=== PATIENT | female | born 2000 | race Two or more races ===

== ENCOUNTER 2022-02-18 18:58 | Emergency (ER) | payer SELFPAY ==
[2022-02-18 19:07] VITALS: BP 133/63; PULSE 92; RESP 18; TEMP 99.6; BMI 27.4
[2022-02-18] MEDS ORDERED: ACETAMINOPHEN 500 MG TABLET (FP) PO ONE (20:13)
[2022-02-18] MEDS ORDERED: ONDANSETRON 4 MG/2 ML VIAL IVPUSH ONE (20:13)
[2022-02-18] MEDS ORDERED: SODIUM CHLORIDE 0.9% 500 ML INFUS.BAG IV ONE (20:13)
[2022-02-18] MEDS ORDERED: ACETAMINOPHEN 1000 MG/100 ML BAG IVPB ONE (20:38)
[2022-02-18] MEDS ORDERED: ONDANSETRON 4 MG/2 ML VIAL ONE (20:44)
[2022-02-18] MEDS ORDERED: ACETAMINOPHEN INJECTION 100 ML IVPB ONE (20:44)
[2022-02-18 21:23] LABS: BASO % 0.4 % (0-2.0); EOS % 0.6 % (0-4.5); HEMATOCRIT 38.6 % (32.4-45.2); HEMOGLOBIN 12.6 GM/dL (10.7-15.3); LYMPH % 18.8 % (8-40); MCH 25.9 pg (25.7-33.7); MCHC 32.6 g/dl (32.0-36.0); MEAN CELL VOLUME 79.4 fl (80-96); MEAN PLT VOLUME 8.1 fl (7.5-11.1); MONO % 17.6 % (3.8-10.2); NEUT % 62.6 % (42.8-82.8); PLATELET COUNT 345 10^3/uL (134-434); RBC 4.86 M/mm3 (3.60-5.2); RDW 15.4 % (11.6-15.6)
[2022-02-18 21:26] LABS: EPI CELLS 22 /uL (0-25.1); HYALINE CASTS 0 /uL (0-3.1); URINE APPEARANCE CLEAR; URINE BACTERIA 7799 /uL (0-1359); URINE BILIRUBIN NEGATIVE (NEGATIVE); URINE COLOR YELLOW; URINE GLUCOSE (UA) NEGATIVE (NEGATIVE); URINE KETONE NEGATIVE (NEGATIVE); URINE LEUK ESTERASE TRACE (NEGATIVE); URINE NITRITE NEGATIVE (NEGATIVE); URINE PROTEIN TRACE (NEGATIVE); URINE RBC 50 /uL (0-23.9); URINE WBC 47 /uL (0-25.8)
[2022-02-18 21:41] LABS: CALCIUM 9.1 mg/dL (8.5-10.1)
[2022-02-18 21:42] LABS: ALBUMIN 3.6 g/dl (3.4-5.0)
[2022-02-18 21:45] LABS: CREATININE 1.1 mg/dL (0.55-1.3)
[2022-02-18 21:47] LABS: BILIRUBIN,TOTAL 0.4 mg/dL (0.2-1)
[2022-02-18] MEDS ORDERED: CEFTRIAXONE 1,000 MG in DEXTROSE 5%-WATER - 50 ML IVPB ONE (22:30)
[2022-02-18] MEDS ORDERED: CEFTRIAXONE 1 GM/50 ML BAG ONE (22:45)
== END 2022-02-19 01:55 | disposition home or self-care (01) ==
LOC: JER 18:58
PROC: 3E033GC Introduction of Other Therapeutic Substance into Peripheral Vein, Percutaneous Approach (ICD-10-PCS; principal; 2022-02-18)
DX: N12 Tubulo-interstitial nephritis, not specified as acute or chronic (principal)
CPT/HCPCS: 0241U-QW; 36415; 74176-TC; 80053; 81003; 84703; 85025; 87086; 87186; 99285-25

== ENCOUNTER 2022-05-11 20:50 | Emergency (ER) | payer OTHER ==
[2022-05-11 21:13] VITALS: BP 133/88; PULSE 85; RESP 18; TEMP 98.1; BMI 29.8
[2022-05-11] MEDS ORDERED: METOCLOPRAMIDE HCL INJECTION 10 MG/2 ML VIAL IVPUSH ONE (21:31)
[2022-05-11] MEDS ORDERED: LACTATED RINGERS SOLUTION 1000 ML INFUS.BAG IV ONE (21:32)
[2022-05-11] MEDS ORDERED: METOCLOPRAMIDE HCL INJECTION 10 MG/2 ML VIAL ONE (21:55)
[2022-05-11 22:09] LABS: BASO % 0.5 % (0-2.0); HEMATOCRIT 40.9 % (32.4-45.2); HEMOGLOBIN 13.3 GM/dL (10.7-15.3); LYMPH % 25.8 % (8-40); MCH 25.8 pg (25.7-33.7); MCHC 32.5 g/dl (32.0-36.0); MEAN CELL VOLUME 79.4 fl (80-96); MEAN PLT VOLUME 7.9 fl (7.5-11.1); MONO % 12.8 % (3.8-10.2); NEUT % 59.9 % (42.8-82.8); PLATELET COUNT 354 10^3/uL (134-434); RBC 5.16 M/mm3 (3.60-5.2); RDW 15.8 % (11.6-15.6); WHITE BLOOD COUNT 12.2 K/mm3 (4.0-10.0)
[2022-05-11 22:17] LABS: URINE APPEARANCE CLOUDY; URINE BILIRUBIN NEGATIVE (NEGATIVE); URINE COLOR YELLOW; URINE GLUCOSE (UA) NEGATIVE (NEGATIVE); URINE KETONE 2+ (NEGATIVE); URINE LEUK ESTERASE NEGATIVE (NEGATIVE); URINE NITRITE NEGATIVE (NEGATIVE); URINE PROTEIN TRACE (NEGATIVE)
[2022-05-11 22:20] LABS: CALCIUM 9.3 mg/dL (8.5-10.1)
[2022-05-11 22:21] LABS: ALBUMIN 3.8 g/dl (3.4-5.0); BLOOD UREA NITROGEN 5.3 mg/dL (7-18)
[2022-05-11 22:24] LABS: CREATININE 0.8 mg/dL (0.55-1.3)
[2022-05-11 22:26] LABS: BILIRUBIN,TOTAL 0.5 mg/dL (0.2-1); TOT PROT 7.6 g/dl (6.4-8.2)
== END 2022-05-12 00:24 | disposition home or self-care (01) ==
LOC: JER 20:50
PROC: 3E033GC Introduction of Other Therapeutic Substance into Peripheral Vein, Percutaneous Approach (ICD-10-PCS; principal; 2022-05-11)
DX: O21.1 Hyperemesis gravidarum with metabolic disturbance (principal)
CPT/HCPCS: 36415; 80053; 81003; 83735; 84702; 85025; 86850; 86900; 86901; 87086; 99284-25

== ENCOUNTER 2022-07-15 12:26 | Emergency (ER) | payer OTHER ==
[2022-07-15 12:44] VITALS: BMI 31.8
[2022-07-15] MEDS ORDERED: ACETAMINOPHEN 1000 MG/100 ML BAG IVPB ONE (14:17)
[2022-07-15] MEDS ORDERED: ACETAMINOPHEN INJECTION 100 ML IVPB ONE (15:18)
[2022-07-15 15:23] LABS: BASO % 0.3 % (0-2.0); HEMATOCRIT 33.6 % (32.4-45.2); HEMOGLOBIN 11.6 GM/dL (10.7-15.3); LYMPH % 35.3 % (8-40); MCH 27.1 pg (25.7-33.7); MCHC 34.5 g/dl (32.0-36.0); MEAN CELL VOLUME 78.6 fl (80-96); MEAN PLT VOLUME 8.8 fl (7.5-11.1); MONO % 17.9 % (3.8-10.2); NEUT % 45.5 % (42.8-82.8); PLATELET COUNT 228 10^3/uL (134-434); RBC 4.28 M/mm3 (3.60-5.2); RETICULOCYTES 1.39 % (0.5-1.5); WHITE BLOOD COUNT 9.6 K/mm3 (4.0-10.0)
[2022-07-15 15:24] LABS: EPI CELLS >36 /uL (0-25.1); HYALINE CASTS 2 /uL (0-3.1); PH,URINE 6.5 (5.0-8.0); URINE APPEARANCE CLOUDY; URINE BACTERIA 3655 /uL (0-1359); URINE BILIRUBIN NEGATIVE (NEGATIVE); URINE COLOR YELLOW; URINE GLUCOSE (UA) NEGATIVE (NEGATIVE); URINE KETONE NEGATIVE (NEGATIVE); URINE LEUK ESTERASE TRACE (NEGATIVE); URINE NITRITE NEGATIVE (NEGATIVE); URINE PROTEIN NEGATIVE (NEGATIVE); URINE WBC 74 /uL (0-25.8)
[2022-07-15 15:34] LABS: URINE RBC 43 /uL (0-23.9)
[2022-07-15 15:44] LABS: ALBUMIN 2.9 g/dl (3.4-5.0)
[2022-07-15 15:47] LABS: CREATININE 0.6 mg/dL (0.55-1.3)
[2022-07-15 15:48] LABS: TOT PROT 6.7 g/dl (6.4-8.2)
[2022-07-15 15:49] LABS: BILIRUBIN,TOTAL 0.3 mg/dL (0.2-1)
[2022-07-15 16:23] LABS: VENOUS BASE EXCESS -1.7 mmol/L (-2-2); VENOUS O2 SATURATION 79.6 % (70-80); VENOUS PCO2 41.8 mmHg (38-52); VENOUS PH 7.368 (7.310-7.410)
[2022-07-15 17:48] VITALS: BP 117/78; PULSE 74; RESP 18; TEMP 98
== END 2022-07-15 17:36 | disposition left against medical advice (07) ==
LOC: JER 12:26
PROC: 3E033GC Introduction of Other Therapeutic Substance into Peripheral Vein, Percutaneous Approach (ICD-10-PCS; principal; 2022-07-15)
DX: O26.892 Other specified pregnancy related conditions, second trimester (principal); R51.9 Headache, unspecified; R07.9 Chest pain, unspecified; Z3A.17 17 weeks gestation of pregnancy
CPT/HCPCS: 36415; 80053; 81003; 82803; 83690; 84484; 84702; 85025; 85045; 85379; 87086; 93005; 93010; 96374; 99284-25

== ENCOUNTER 2022-09-04 20:52 | Inpatient (IN) | payer OTHER ==
[2022-09-04] MEDS ORDERED: LACTATED RINGERS SOLUTION 1000 ML INFUS.BAG IV ONE (21:28)
[2022-09-04] MEDS ORDERED: PANTOPRAZOLE SODIUM 40 MG VIAL IVPUSH ONE (21:37)
[2022-09-04] MEDS ORDERED: PANTOPRAZOLE SODIUM 40 MG VIAL ONE (21:40)
[2022-09-04 22:04] LABS: BASO % 0.3 % (0-2.0); HEMATOCRIT 31.6 % (32.4-45.2); HEMOGLOBIN 10.7 GM/dL (10.7-15.3); LYMPH % 23.6 % (8-40); MCH 27.1 pg (25.7-33.7); MEAN CELL VOLUME 79.6 fl (80-96); MONO % 10.9 % (3.8-10.2); NEUT % 64.2 % (42.8-82.8); PLATELET COUNT 303 10^3/uL (134-434); RBC 3.97 M/mm3 (3.60-5.2); RDW 14.7 % (11.6-15.6); WHITE BLOOD COUNT 15.5 K/mm3 (4.0-10.0)
[2022-09-04 22:20] LABS: ALBUMIN 2.8 g/dl (3.4-5.0); BLOOD UREA NITROGEN 4.7 mg/dL (7-18)
[2022-09-04 22:23] LABS: CREATININE 0.6 mg/dL (0.55-1.3)
[2022-09-04 22:24] LABS: BILIRUBIN,TOTAL 0.3 mg/dL (0.2-1); TOT PROT 6.8 g/dl (6.4-8.2)
[2022-09-04 22:54] LABS: URINE APPEARANCE CLEAR; URINE BILIRUBIN NEGATIVE (NEGATIVE); URINE COLOR YELLOW; URINE GLUCOSE (UA) NEGATIVE (NEGATIVE); URINE KETONE NEGATIVE (NEGATIVE); URINE LEUK ESTERASE NEGATIVE (NEGATIVE); URINE NITRITE NEGATIVE (NEGATIVE); URINE PROTEIN NEGATIVE (NEGATIVE)
[2022-09-04 22:55] LABS: ANISOCYTOSIS 2+; MACROCYTOSIS 2+
[2022-09-04] MEDS ORDERED: ONDANSETRON 4 MG/2 ML VIAL IVPUSH ONE (23:59)
[2022-09-05] MEDS ORDERED: ONDANSETRON 4 MG/2 ML VIAL ONE (00:19)
[2022-09-05] MEDS: DEXTROSE 5%-LACTATED RINGERS 1,000 ML IV SCH ×3 (01:30→17:52)
[2022-09-05 01:43] VITALS: BMI 34.7
[2022-09-05] MEDS ORDERED: diphenhydrAMINE HCL 50 MG CAPSULE PO PRN (03:15)
[2022-09-05] MEDS ORDERED: PYRIDOXINE HCL (B-6) 50 MG TABLET (FP) PO PRN (03:17)
[2022-09-05 03:56] LABS: BASO % 0.2 % (0-2.0); EOS % 0.3 % (0-4.5); HEMATOCRIT 30.4 % (32.4-45.2); HEMOGLOBIN 10.2 GM/dL (10.7-15.3); LYMPH % 16.3 % (8-40); MCH 26.4 pg (25.7-33.7); MCHC 33.5 g/dl (32.0-36.0); MEAN CELL VOLUME 78.8 fl (80-96); MEAN PLT VOLUME 8.2 fl (7.5-11.1); MONO % 10.1 % (3.8-10.2); NEUT % 73.1 % (42.8-82.8); PLATELET COUNT 279 10^3/uL (134-434); RBC 3.86 M/mm3 (3.60-5.2); RDW 14.8 % (11.6-15.6); WHITE BLOOD COUNT 18.6 K/mm3 (4.0-10.0)
[2022-09-05] MEDS ORDERED: diphenhydrAMINE HCL 50 MG CAPSULE PO SCH (05:15)
[2022-09-05] MEDS ORDERED: diphenhydrAMINE HCL 25 MG CAPSULE (FP) PO SCH (05:15)
[2022-09-05] MEDS ORDERED: ACETAMINOPHEN 1000 MG/100 ML BAG IVPB PRN (05:33)
[2022-09-05] MEDS: PYRIDOXINE HCL (B-6) 50 MG TABLET (FP) PO SCH ×3 (06:07→21:12)
[2022-09-05 06:49] LABS: INR 1.11 (0.83-1.09); PROTHROMBIN TIME (PATIENT) 12.9 SEC (9.7-13.0)
[2022-09-05] MEDS: PANTOPRAZOLE SODIUM 40 MG VIAL IVPUSH SCH ×2 (09:29→21:12)
[2022-09-05 10:08] LABS: HEMATOCRIT 28.4 % (32.4-45.2); HEMOGLOBIN 9.8 GM/dL (10.7-15.3); MCH 27.1 pg (25.7-33.7); MCHC 34.4 g/dl (32.0-36.0); MEAN CELL VOLUME 78.9 fl (80-96); MEAN PLT VOLUME 8.1 fl (7.5-11.1); PLATELET COUNT 263 10^3/uL (134-434); RDW 14.5 % (11.6-15.6); WHITE BLOOD COUNT 14.9 K/mm3 (4.0-10.0)
[2022-09-05 10:56] LABS: ANISOCYTOSIS 3+; MACROCYTOSIS 0
[2022-09-05] MEDS: POLYETHYLENE GLYCOL (HEALTHYLAX) 3350 17 GM PACKET PO SCH (11:00)
[2022-09-05 11:04] VITALS: RESP 18
[2022-09-05 16:44] LABS: BASO % 0.4 % (0-2.0); EOS % 0.6 % (0-4.5); HEMATOCRIT 28.3 % (32.4-45.2); HEMOGLOBIN 9.7 GM/dL (10.7-15.3); LYMPH % 22.7 % (8-40); MCH 26.9 pg (25.7-33.7); MCHC 34.2 g/dl (32.0-36.0); MEAN CELL VOLUME 78.5 fl (80-96); MEAN PLT VOLUME 8.9 fl (7.5-11.1); MONO % 11.7 % (3.8-10.2); NEUT % 64.6 % (42.8-82.8); PLATELET COUNT 265 10^3/uL (134-434); RBC 3.61 M/mm3 (3.60-5.2); RDW 14.8 % (11.6-15.6); WHITE BLOOD COUNT 13.1 K/mm3 (4.0-10.0)
[2022-09-05 18:01] LABS: ANISOCYTOSIS 1+; MACROCYTOSIS 0; TEAR DROP CELLS 1+
[2022-09-06] MEDS: DEXTROSE 5%-LACTATED RINGERS 1,000 ML IV SCH (05:56)
[2022-09-06] MEDS ORDERED: FERROUS SO4 325 MG TABLET (FP) PO SCH (07:00)
[2022-09-06 07:28] LABS: HEMATOCRIT 30.3 % (32.4-45.2); HEMOGLOBIN 10.6 GM/dL (10.7-15.3); MCH 27.3 pg (25.7-33.7); MCHC 35.1 g/dl (32.0-36.0); MEAN CELL VOLUME 77.8 fl (80-96); MEAN PLT VOLUME 9.1 fl (7.5-11.1); PLATELET COUNT 275 10^3/uL (134-434); RBC 3.89 M/mm3 (3.60-5.2); RDW 14.6 % (11.6-15.6); WHITE BLOOD COUNT 11.4 K/mm3 (4.0-10.0)
[2022-09-06 07:30] LABS: CALCIUM 8.8 mg/dL (8.5-10.1)
[2022-09-06 07:31] LABS: BLOOD UREA NITROGEN 3.8 mg/dL (7-18)
[2022-09-06 07:34] LABS: CREATININE 0.5 mg/dL (0.55-1.3)
[2022-09-06] MEDS: PANTOPRAZOLE SODIUM 40 MG VIAL IVPUSH SCH (09:30)
[2022-09-06] MEDS: PYRIDOXINE HCL (B-6) 50 MG TABLET (FP) PO SCH (09:30)
[2022-09-06] MEDS: POLYETHYLENE GLYCOL (HEALTHYLAX) 3350 17 GM PACKET PO SCH (09:32)
[2022-09-06 10:56] LABS: ANISOCYTOSIS 0; MACROCYTOSIS 0
[2022-09-06 18:25] VITALS: BP 105/70; PULSE 93; TEMP 98
== END 2022-09-06 18:59 | disposition home or self-care (01) | DRG 566 ==
LOC: JER 20:52 → JERBED 23:57 → JLDR 09-05 01:11 → J3W 09-05 03:05
PROVIDERS: ADMIT Obstetrics & Gynecology; ATTEND Obstetrics & Gynecology
DX: O26.892 Other specified pregnancy related conditions, second trimester (principal); K92.0 Hematemesis; Z3A.23 23 weeks gestation of pregnancy
CPT/HCPCS: 36415; 76815; 76815-TC; 80048; 80053; 81003; 82272; 83021; 83690; 84484; 85025; 85610; 85660; 85730; 86850; 86900; 86901; 93005; 93010; 99285-25; C9803-CS; U0003; U0005